=== PATIENT | female | born 1940 | race African-American/Black ===

== ENCOUNTER 2024-11-28 19:11 | Inpatient (IN) | payer BC, OTHER ==
[~2024-11-28] VITALS: Ht 162.6 cm; Wt 70.3 kg
[2024-11-28 19:16] VITALS: O2SAT 100
[2024-11-28 20:03] LABS: HEMATOCRIT. 44.8 % (36.0-48.0); HEMOGLOBIN. 14.7 g/dL (12.0-16.0); MEAN CORPUSCULAR HEMOGLOBIN 27.7 pg (28.0-32.0); MEAN CORPUSCULAR HGB CONC 32.7 g/dL (31.0-37.0); MEAN CORPUSCULAR VOLUME 84.9 fL (81.0-99.0); MEAN PLATELET VOLUME 7.8 fl (7.4-10.4); PLATELET 613 x1000/uL (130-400); RED BLOOD CELL COUNT 5.28 mill/uL (4.2-5.4); RED CELL DISTRIBUTION WIDTH 15.1 % (11.6-14.6)
[2024-11-28 20:09] LABS: DIFFERENTIAL COMMENT 1
[2024-11-28 20:10] LABS: CHLORIDE 95 mEq/L (98-107); POTASSIUM 5.3 mEq/L (3.5-5.1); SODIUM 132 mEq/L (136-145)
[2024-11-28 20:11] LABS: CARBON DIOXIDE 29 mEq/L (21-32)
[2024-11-28] MEDS: SODIUM CHLORIDE 0.9% 1,000 ML IV ONE (20:11)
[2024-11-28 20:12] LABS: CALCIUM 8.4 mg/dL (8.7-10.4)
[2024-11-28 20:15] LABS: PROTHROMBIN TIME 11.1 sec (9.6-11.0)
[2024-11-28 20:16] LABS: CREATININE 1.1 mg/dL (0.6-1.0); GLUCOSE 153 mg/dL (70-105); UREA NITROGEN BLOOD 17 mg/dL (9-23)
[2024-11-28 20:18] LABS: TROPONIN I HIGH SENSITIVITY 19 ng/L (3.0-34)
[2024-11-28 20:32] LABS: PLATELET ESTIMATE INCREASED
[2024-11-28 20:36] LABS: LACTIC ACID 3.4 mmol/L (0.4-2.0)
[2024-11-28 22:00] VITALS: BP 116/83; PULSE 80; RESP 18; TEMP 37.3
[2024-11-28 22:07] VITALS: BP 116/83; PULSE 80; RESP 18; TEMP 37.2; O2SAT 96
[2024-11-28] MEDS ORDERED: GUAIFENESIN 200MG/10ML SUGAR FREE UDC PO PRN (23:30)
[2024-11-28] MEDS ORDERED: IPRATROPIUM/ALBUTEROL 0.5-3(2.5)MG/3ML NEB HHN PRN (23:30)
[2024-11-28] MEDS ORDERED: ONDANSETRON HCL 4MG/2ML INJ IV PRN (23:30)
[2024-11-28] MEDS ORDERED: MAGNESIUM/ALUMINUM HYDROXIDE/SIMETHICONE 30ML UDC PO PRN (23:30)
[2024-11-28] MEDS ORDERED: DOCUSATE SODIUM 100MG CAPSULE PO PRN (23:30)
[2024-11-28] MEDS ORDERED: ACETAMINOPHEN 325MG TABLET PO PRN (23:30)
[2024-11-28] MEDS ORDERED: NALOXONE HCL 0.4MG/ML VIAL IV PRN (23:45)
[2024-11-28] MEDS ORDERED: CALCIUM CHLORIDE 1GM/10ML SYR IV NR (23:45)
[2024-11-28] MEDS ORDERED: KETOROLAC 30MG/ML VIAL IV PRN (23:45)
[2024-11-29] VITALS (7 sets, daily range): BP systolic 150–178; BP diastolic 73–93; PULSE 73–95; RESP 18–20; TEMP 36.2–36.4; O2SAT 98–100
[2024-11-29 02:00] LABS: *AMPHETAMINES SCREEN URINE NEGATIVE (NEGATIVE); *BARBITURATES SCREEN URINE NEGATIVE (NEGATIVE); *BENZODIAZEPINES SCREEN URINE NEGATIVE (NEGATIVE); *COCAINE SCREEN URINE NEGATIVE (NEGATIVE); CANNABINOID URINE SCREEN NEGATIVE (NEGATIVE); ECSTASY MDMA SCREEN URINE NEGATIVE (NEGATIVE); METHADONE URINE SCREEN NEGATIVE (NEGATIVE); OPIATES URINE SCREEN PRESUMPTIVE POSITIVE (NEGATIVE); PHENCYCLIDINE URINE SCREEN NEGATIVE (NEGATIVE)
[2024-11-29 02:12] LABS: CLARITY URINE CLOUDY (CLEAR); COLOR URINE ORANGE (YELLOW); GLUCOSE URINE NEGATIVE (NEGATIVE); KETONES URINE NEGATIVE (NEGATIVE); LEUKOCYTE ESTERASE URINE 2+ (NEGATIVE); NITRITE URINE NEGATIVE (NEGATIVE); OCCULT BLOOD URINE 2+ (NEGATIVE); PH URINE 6.5 (4.5-8.0); PROTEIN URINE 2+ (NEGATIVE); SPECIFIC GRAVITY URINE 1.021 (1.005-1.030); UROBILINOGEN URINE 0.2 E.U./dL (0.2-1.0)
[2024-11-29] MEDS: KETOROLAC 30MG/ML VIAL IV NR (02:13)
[2024-11-29] MEDS: SODIUM BICARBONATE 8.4% 50MEQ/50ML SYR IV NR (02:14)
[2024-11-29] MEDS: FAMOTIDINE 20MG TABLET PO SCH (02:14)
[2024-11-29] MEDS: DEXT 5%/0.9% NACL 1,000 ML IV SCH (02:14)
[2024-11-29] MEDS: SODIUM ZIRCONIUM CYCLOSILICATE 10GM/PACKET PO NR (02:14)
[2024-11-29] MEDS: LIDOCAINE 5% PATCH TOP SCH (02:15)
[2024-11-29 02:26] LABS: TROPONIN I HIGH SENSITIVITY 24 ng/L (3.0-34)
[2024-11-29 02:27] LABS: ALANINE AMINOTRANSFERASE 1096 IU/L (10-49); ALBUMIN 3.6 g/dL (3.2-4.8); BILIRUBIN DIRECT 0.2 mg/dL (<=3.0); BILIRUBIN TOTAL 0.6 mg/dL (0.1-1.0); PROTEIN TOTAL 6.6 g/dL (6.0-8.3)
[2024-11-29 02:38] LABS: ASPARTATE AMINOTRANSFERASE 4437 IU/L (<34)
[2024-11-29] MEDS: CALCIUM CHLORIDE 1GM/10ML SYR IV NR (02:38)
[2024-11-29 03:29] LABS: SQUAMOUS EPITHELIAL CELL URINE 1+ /lpf (RARE/1+)
[2024-11-29 03:32] LABS: WBC URINE 0-2 /hpf (0-2)
[2024-11-29 03:33] LABS: RBC URINE 0-2 /hpf (0-2)
[2024-11-29 03:34] LABS: BACTERIA URINE 1+
[2024-11-29] MEDS: CYCLOBENZAPRINE 10MG TABLET PO SCH (06:34)
[2024-11-29] MEDS: LEVOTHYROXINE SODIUM 88MCG TABLET PO SCH (06:35)
[2024-11-29 08:16] LABS: LACTIC ACID 2.5 mmol/L (0.4-2.0)
[2024-11-29 08:23] LABS: BASOPHILS % 0.2 % (0.0-2.0); DIFFERENTIAL COMMENT 0; EOSINOPHILS % 0.1 % (0.0-5.0); HEMATOCRIT. 42.8 % (36.0-48.0); HEMOGLOBIN. 14.1 g/dL (12.0-16.0); LYMPHOCYTES % 8.1 % (20.0-50.0); MEAN CORPUSCULAR HEMOGLOBIN 27.6 pg (28.0-32.0); MEAN CORPUSCULAR VOLUME 83.5 fL (81.0-99.0); MEAN PLATELET VOLUME 8.1 fl (7.4-10.4); MONOCYTES % 4.3 % (2.0-8.0); NEUTROPHILS % 87.3 % (40.0-76.0); PLATELET 527 x1000/uL (130-400); RED BLOOD CELL COUNT 5.12 mill/uL (4.2-5.4); WHITE BLOOD COUNT 10.2 x1000/uL (4.5-11.0)
[2024-11-29 08:39] LABS: POTASSIUM 5.1 mEq/L (3.5-5.1)
[2024-11-29 08:40] LABS: CALCIUM 8.4 mg/dL (8.7-10.4)
[2024-11-29 08:46] LABS: T4 FREE 0.81 ng/dL (0.89-1.76); THYROID STIMULATING HORMONE 11.32 uIU/mL (0.55-4.78)
[2024-11-29 08:47] LABS: ALBUMIN 3.4 g/dL (3.2-4.8)
[2024-11-29] MEDS: HYDROCHLOROTHIAZIDE 12.5MG CAPSULE PO SCH (09:36)
[2024-11-29] MEDS: TIMOLOL MALEATE 0.5% OPHTH DROPS 5ML EACHEYE SCH (09:36)
[2024-11-29] MEDS: ENOXAPARIN 30MG/0.3ML SYR SUBCUT SCH (09:36)
[2024-11-29] MEDS: AMLODIPINE 10MG TABLET PO SCH (09:36)
[2024-11-29 10:04] LABS: CREATININE 1.7 mg/dL (0.6-1.0)
[2024-11-29 11:49] LABS: HEPATITIS B SURFACE ANTIGEN NEGATIVE (Negative)
[2024-11-29 11:54] LABS: HEPATITIS A AB IGM NEGATIVE (Negative)
[2024-11-29 11:55] LABS: HEPATITIS B CORE AB IGM NEGATIVE (Negative); HEPATITIS C AB NON REACTIVE (Neg) (Negative)
[2024-11-29] MEDS: MORPHINE SULFATE 2 MG/ML INJ (NOT FOR IM USE) IV PRN (12:52)
[2024-11-29] MEDS: CLONIDINE 0.1MG TABLET PO PRN (16:51)
[2024-11-29] MEDS ORDERED: HYDROCODONE/ACETAMINOPHEN 5/325MG TABLET PO PRN (18:15)
[2024-11-29] MEDS: DEXT 5%/0.45% NACL 1000ML 1,000 ML IV SCH (18:34)
[2024-11-29] MEDS: HYDROCORTISONE SOD SUCCINATE 250 MG/2 ML VIAL IV NR (21:27)
[2024-11-29] MEDS: TRAZODONE HCL 50MG TABLET PO SCH (21:28)
[2024-11-29] MEDS: HYDROCORTISONE SOD SUCCINATE 100 MG/2 ML VIAL IV SCH (21:29)
[2024-11-29 22:47] LABS: CREATINE KINASE > 39000 IU/L (34-145)
[2024-11-30] VITALS (14 sets, daily range): BP systolic 90–158; BP diastolic 45–100; PULSE 75–107; RESP 20–45; TEMP 36.28068–38.1; O2SAT 96–100
[2024-11-30 07:41] LABS: BASOPHILS % 0.1 % (0.0-2.0); DIFFERENTIAL COMMENT 0; EOSINOPHILS % 0.1 % (0.0-5.0); HEMATOCRIT. 43.4 % (36.0-48.0); HEMOGLOBIN. 14.2 g/dL (12.0-16.0); LYMPHOCYTES % 9.6 % (20.0-50.0); MEAN CORPUSCULAR HEMOGLOBIN 27.8 pg (28.0-32.0); MEAN CORPUSCULAR HGB CONC 32.7 g/dL (31.0-37.0); MEAN CORPUSCULAR VOLUME 85.2 fL (81.0-99.0); MEAN PLATELET VOLUME 8.5 fl (7.4-10.4); MONOCYTES % 2.4 % (2.0-8.0); NEUTROPHILS % 87.8 % (40.0-76.0); PLATELET 542 x1000/uL (130-400); RED BLOOD CELL COUNT 5.09 mill/uL (4.2-5.4); RED CELL DISTRIBUTION WIDTH 15.3 % (11.6-14.6)
[2024-11-30 08:00] LABS: CALCIUM 7.7 mg/dL (8.7-10.4); CHLORIDE 93 mEq/L (98-107); SODIUM 128 mEq/L (136-145)
[2024-11-30 08:01] LABS: CARBON DIOXIDE 17 mEq/L (21-32)
[2024-11-30 08:06] LABS: GLUCOSE 180 mg/dL (70-105); UREA NITROGEN BLOOD 37 mg/dL (9-23)
[2024-11-30 08:09] LABS: T4 FREE 0.66 ng/dL (0.89-1.76)
[2024-11-30 08:19] LABS: CREATININE 3.5 mg/dL (0.6-1.0)
[2024-11-30 08:27] LABS: PHOSPHORUS 8.6 mg/dL (2.5-4.9); POTASSIUM 6.7 mEq/L (3.5-5.1)
[2024-11-30] MEDS: LEVOTHYROXINE SODIUM 100 MCG/ VIAL IV SCH (09:04)
[2024-11-30] MEDS ORDERED: ALBUTEROL (0.083%) 2.5MG/3ML NEB HHN NR (10:00)
[2024-11-30] MEDS: INSULIN REGULAR (HUMULIN R) 1000UNITS/10ML VIAL IV NR (10:26)
[2024-11-30] MEDS: FUROSEMIDE 40MG/4ML VIAL IVP NR (10:26)
[2024-11-30] MEDS: SODIUM BICARBONATE 8.4% 50MEQ/50ML SYR IV NR ×3 (10:26→22:59)
[2024-11-30] MEDS: SODIUM POLYSTYRENE SULFONATE 15 G/60 ML BOT PO NR ×2 (10:26→20:27)
[2024-11-30] MEDS: DEXTROSE 50% WATER 50ML SYRINGE IV NR (10:46)
[2024-11-30] MEDS: DEXT 5%/0.9% NACL 1,000 ML IV SCH (11:19)
[2024-11-30 11:40] LABS: CREATINE KINASE 217455 IU/L (34-145)
[2024-11-30] MEDS: CEFTRIAXONE 1GM/50ML 50 ML IV SCH (12:42)
[2024-11-30 13:16] LABS: ALBUMIN 3.2 g/dL (3.2-4.8); ASPARTATE AMINOTRANSFERASE > 1000 IU/L (<34); BILIRUBIN DIRECT 0.2 mg/dL (<=3.0); BILIRUBIN TOTAL 0.6 mg/dL (0.1-1.0); PROTEIN TOTAL 5.8 g/dL (6.0-8.3)
[2024-11-30 13:26] LABS: ALANINE AMINOTRANSFERASE 1398 IU/L (10-49)
[2024-11-30] MEDS ORDERED: SODIUM POLYSTYRENE SULFONATE 15 G/60 ML BOT PO ONE (13:30)
[2024-11-30] MEDS: SODIUM ZIRCONIUM CYCLOSILICATE 10GM/PACKET PO NR (14:24)
[2024-11-30] MEDS: CALCIUM CHLORIDE 1GM/10ML SYR IV NR (14:24)
[2024-11-30] MEDS ORDERED: LIDOCAINE HCL 1% 10 MG/ML 10ML VIAL ONE (14:26)
[2024-11-30 19:10] LABS: CALCIUM 7.7 mg/dL (8.7-10.4)
[2024-11-30 19:14] LABS: CREATININE 3.1 mg/dL (0.6-1.0)
[2024-11-30 19:24] LABS: POTASSIUM 6.5 mEq/L (3.5-5.1)
[2024-11-30] MEDS: BUPROPION HCL 75MG TABLET PO SCH (20:26)
[2024-11-30] MEDS: PREGABALIN 50 MG CAPSULE PO SCH (20:27)
[2024-11-30] MEDS: ACETAMINOPHEN 325MG TABLET PO PRN (20:47)
[2024-11-30 22:25] LABS: BG BASE EXCESS -7.2 mmol/L (-2.0-3.0); BG CARBOXYHEMOGLOBIN 0.3 % (0.5-1.5); BG DEOXYHEMOGLOBIN 1.1 % (0.0-5.0); BG FRACTION INSPIRED OXYGEN 100; BG HCO3 ACT 20.3 mmol/L (21.0-28.0); BG METHEMOGLOBIN 0.3 % (0.5-1.5); BG OXYGEN SATURATION 98.9 % (94.0-98.0); BG OXYHEMOGLOBIN 98.3 % (94.0-98.0); BG PCO2 50.2 mmHg (32.0-45.0); BG PH 7.224 (7.350-7.450); BG SAMPLE SITE RIGHT FEMORAL; BG TOTAL RESPIRATORY RATE 20 b/min; BG VENT MODE VENT - AC
[2024-11-30] MEDS: NOREPINEPHRINE 32 MG in DEXT 5% WATER 218 ML IV PRN (23:00)
[2024-11-30] MEDS: AMIODARONE 360MG/200ML 200 ML IV NR (23:02)
[2024-12-01] VITALS (36 sets, daily range): BP systolic 33–118; BP diastolic 17–98; PULSE 22–92; RESP 0–30; TEMP 37.2
[2024-12-01] MEDS: METHYLPREDNISOLONE SOD SUCC 40MG/ML (ACT-O-VIAL) IV SCH (00:47)
[2024-12-01 00:55] LABS: HEMATOCRIT. 37.9 % (36.0-48.0); MEAN CORPUSCULAR HEMOGLOBIN 27.9 pg (28.0-32.0); MEAN CORPUSCULAR HGB CONC 31.7 g/dL (31.0-37.0); MEAN CORPUSCULAR VOLUME 87.9 fL (81.0-99.0); RED BLOOD CELL COUNT 4.31 mill/uL (4.2-5.4); RED CELL DISTRIBUTION WIDTH 15.7 % (11.6-14.6)
[2024-12-01 00:58] LABS: CARBON DIOXIDE 15 mEq/L (21-32); CHLORIDE 100 mEq/L (98-107); SODIUM 143 mEq/L (136-145)
[2024-12-01 00:59] LABS: CALCIUM 8.2 mg/dL (8.7-10.4)
[2024-12-01] MEDS ORDERED: FENTANYL 2500MCG/250ML PMX 250 ML IV PRN (01:00)
[2024-12-01 01:01] LABS: DIFFERENTIAL COMMENT 1
[2024-12-01 01:04] LABS: GLUCOSE 217 mg/dL (70-105); UREA NITROGEN BLOOD 47 mg/dL (9-23)
[2024-12-01] MEDS: EPINEPHRINE 10 MG in SODIUM CHLORIDE 0.9% 240 ML IV PRN (01:33)
[2024-12-01] MEDS: PROPOFOL 10MG/ML 100ML 100 ML IV PRN (01:34)
[2024-12-01] MEDS: VASOPRESSIN 20 UNIT in SODIUM CHLORIDE 0.9% 99 ML IV PRN (01:45)
[2024-12-01 01:49] LABS: INR 1.7; PARTIAL THROMBOPLASTIN TIME 39.7 sec (23.4-31.0); PROTHROMBIN TIME 17.8 sec (9.6-11.0)
[2024-12-01] MEDS ORDERED: LACTATED RINGERS 1,000 ML IV SCH (02:15)
[2024-12-01] MEDS: AMIODARONE 360MG/200ML 200 ML IV SCH (02:21)
[2024-12-01] MEDS: SODIUM BICARBONATE 8.4% 50MEQ/50ML SYR IV NR (02:37)
[2024-12-01] MEDS: SODIUM ZIRCONIUM CYCLOSILICATE 10GM/PACKET NG NR (02:38)
[2024-12-01] MEDS: LACTATED RINGERS 1,000 ML IV NR (02:39)
[2024-12-01 02:50] LABS: BG BASE EXCESS -2.1 mmol/L (-2.0-3.0); BG CARBOXYHEMOGLOBIN 0.1 % (0.5-1.5); BG FRACTION INSPIRED OXYGEN 100; BG HCO3 ACT 22.8 mmol/L (21.0-28.0); BG METHEMOGLOBIN 0.3 % (0.5-1.5); BG OXYHEMOGLOBIN 96.6 % (94.0-98.0); BG PH 7.384 (7.350-7.450); BG PO2 118.1 mmHg (83.0-108.0); BG SAMPLE SITE ALINE; BG TOTAL HEMOGLOBIN 9.4 g/dL (12.0-16.0); BG TOTAL RESPIRATORY RATE 20 b/min; BG VENT MODE VENT - AC
[2024-12-01] MEDS: DEXTROSE 50% WATER 50ML SYRINGE IV NR (03:15)
[2024-12-01] MEDS ORDERED: DOPAMINE 400MG/250ML PREMIX 250 ML IV ONE (03:16)
[2024-12-01] MEDS: PHENYLEPHRINE 50MG/250ML PMX 250 ML IV PRN (03:23)
[2024-12-01] MEDS: INSULIN REGULAR (HUMULIN R) 1000UNITS/10ML VIAL IV NR (03:26)
[2024-12-01] MEDS: DOPAMINE 400MG/250ML PREMIX 250 ML IV PRN (03:51)
[2024-12-01 03:55] LABS: LACTIC ACID 20.9 mmol/L (0.4-2.0)
[2024-12-01 03:56] LABS: CREATININE 4.2 mg/dL (0.6-1.0); PHOSPHORUS 13.4 mg/dL (2.5-4.9); POTASSIUM 6.4 mEq/L (3.5-5.1); TROPONIN I HIGH SENSITIVITY 4073 ng/L (3.0-34)
[2024-12-01] MEDS: VANCOMYCIN 750MG/150ML (BAXTER) IV NR (04:28)
[2024-12-01 05:38] LABS: D-DIMER > 35.20 mg/L FEU (<0.50)
[2024-12-01] MEDS: PIPERACILLIN/TAZO 3.375G/50ML 50 ML IV SCH (06:00)
[2024-12-01] MEDS ORDERED: PIPERACILLIN/TAZO 3.375G/50ML 50 ML IV SCH (09:00)
[2024-12-01] MEDS ORDERED: CALCIUM CHLORIDE 1GM/10ML SYR IV ONE (13:43)
[2024-12-01 14:12] LABS: ANISOCYTOSIS 1+; NUCLEATED RED BLOOD CELLS 13 /100 WBC
[2024-12-01 14:15] LABS: GIANT PLATELETS FEW; PLATELET ESTIMATE NORMAL
[2024-12-01] MEDS ORDERED: FAMOTIDINE 20MG TABLET PO SCH (21:00)
== END 2024-12-01 07:15 | DRG 871 ==
LOC: ER 19:11 → 6WST 22:15 → 5EST 11-30 16:28 → CVICU 11-30 22:23
PROVIDERS: ADMIT Internal Medicine; ATTEND Internal Medicine
PROC: 5A1935Z Respiratory Ventilation, Less than 24 Consecutive Hours (ICD-10-PCS; principal; 2024-11-30)
PROC: 0BH17EZ Insertion of Endotracheal Airway into Trachea, Via Natural or Artificial Opening (ICD-10-PCS; 2024-11-30)
PROC: 5A12012 Performance of Cardiac Output, Single, Manual (ICD-10-PCS; 2024-11-30)
PROC: 03HY32Z Insertion of Monitoring Device into Upper Artery, Percutaneous Approach (ICD-10-PCS; 2024-11-30)
PROC: 06HY33Z Insertion of Infusion Device into Lower Vein, Percutaneous Approach (ICD-10-PCS; 2024-11-30)
PROC: B54CZZA Ultrasonography of Left Lower Extremity Veins, Guidance (ICD-10-PCS; 2024-11-30)
PROC: B51C1ZA Fluoroscopy of Left Lower Extremity Veins using Low Osmolar Contrast, Guidance (ICD-10-PCS; 2024-11-30)
PROC: 5A12012 Performance of Cardiac Output, Single, Manual (ICD-10-PCS; 2024-12-01)
PROC: 5A1D70Z Performance of Urinary Filtration, Intermittent, Less than 6 Hours Per Day (ICD-10-PCS; 2024-12-01)
DX: A41.9 Sepsis, unspecified organism (principal); G92.8 Other toxic encephalopathy; N17.0 Acute kidney failure with tubular necrosis; J96.02 Acute respiratory failure with hypercapnia; J96.01 Acute respiratory failure with hypoxia; J69.0 Pneumonitis due to inhalation of food and vomit; R65.21 Severe sepsis with septic shock; E87.1 Hypo-osmolality and hyponatremia; E87.20 Acidosis, unspecified; M62.82 Rhabdomyolysis; I46.9 Cardiac arrest, cause unspecified; M19.012 Primary osteoarthritis, left shoulder; M19.011 Primary osteoarthritis, right shoulder; M50.30 Other cervical disc degeneration, unspecified cervical region; R74.01 Elevation of levels of liver transaminase levels; E87.5 Hyperkalemia; E83.51 Hypocalcemia; D75.839 Thrombocytosis, unspecified; R73.9 Hyperglycemia, unspecified; E89.0 Postprocedural hypothyroidism; N18.9 Chronic kidney disease, unspecified; E78.00 Pure hypercholesterolemia, unspecified; I12.9 Hypertensive chronic kidney disease with stage 1 through stage 4 chronic kidney disease, or unspecified chronic kidney disease; G47.00 Insomnia, unspecified; R47.1 Dysarthria and anarthria; Z96.651 Presence of right artificial knee joint; Z79.899 Other long term (current) drug therapy
CPT/HCPCS: 31500; 31720; 36415; 36556; 36600; 71045; 73030; 73560; 76700; 76937; 80048; 80061; 80076; 80305; 81003; 82040; 82375; 82550; 82805; 82962; 82977; 83036; 83605; 83735; 84100; 84145; 84439; 84443; 84481; 84484; 85025; 85379; 85651; 86038; 86705; 86709; 86850; 86900; 87340; 90935; 92950; 93005; 93970; 94002; 94003; 94070; 94664; 98960; 99285; A4606; C1752; C1769; C1887; J0282; J0696; J1265; J1650; J1720; J1815; J1885; J1940; J2003; J2270; J2371; J2704; J2919; J3370; J3490; J7030; J7042; J7050; J7060